=== PATIENT | male | born 1950 | race Caucasian/White ===

== ENCOUNTER 2017-07-07 12:40 | Observation (INO) | payer MEDICAID, MEDICARE ==
[~2017-07-07] VITALS: Ht 167.6 cm; Wt 101.2 kg
[~2017-07-07 12:40] MED LIST: Divalproex Sodium PO; LAM25 PO
[2017-07-07] MEDS ORDERED: KETOROLAC 30MG/ML VIAL IV ONE (13:15)
[2017-07-07 13:38] LABS: BASOPHILS % 1.1 % (0.0-2.0); EOSINOPHILS % 1.7 % (0.0-5.0); HEMATOCRIT. 35.5 % (42.0-52.0); HEMOGLOBIN. 12.6 g/dL (14.0-18.0); LYMPHOCYTES % 26.9 % (20.0-50.0); MEAN CORPUSCULAR HEMOGLOBIN 33.6 pg (28.0-32.0); MEAN CORPUSCULAR VOLUME 94.8 fL (80.0-94.0); MEAN PLATELET VOLUME 9.3 fl (7.4-10.4); NEUTROPHILS % 61.3 % (40.0-76.0); PLATELET 101 x1000/uL (130-400); RED BLOOD CELL COUNT 3.74 mill/uL (4.7-6.1)
[2017-07-07 13:55] LABS: CARBON DIOXIDE 27 mEq/L (21-32); CHLORIDE 106 mEq/L (98-107); ETHANOL BLOOD < 10 mg/dL
[2017-07-07 14:13] LABS: CLARITY URINE CLEAR (CLEAR); COLOR URINE YELLOW (YELLOW); KETONES URINE NEGATIVE (NEGATIVE); LEUKOCYTE ESTERASE URINE NEGATIVE (NEGATIVE); NITRITE URINE NEGATIVE (NEGATIVE); OCCULT BLOOD URINE TRACE (NEGATIVE); PH URINE 6.5 (4.5-8.0); PROTEIN URINE NEGATIVE (NEGATIVE); SPECIFIC GRAVITY URINE 1.018 (1.005-1.030); UROBILINOGEN URINE 0.2 E.U./dL (0.2-1.0)
[2017-07-07 14:41] LABS: *AMPHETAMINES SCREEN URINE NEGATIVE (NEGATIVE); *BARBITURATES SCREEN URINE NEGATIVE (NEGATIVE); *BENZODIAZEPINES SCREEN URINE NEGATIVE (NEGATIVE); *COCAINE SCREEN URINE NEGATIVE (NEGATIVE); CANNABINOID URINE SCREEN NEGATIVE (NEGATIVE); METHADONE URINE SCREEN NEGATIVE (NEGATIVE); OPIATES URINE SCREEN NEGATIVE (NEGATIVE); PHENCYCLIDINE URINE SCREEN NEGATIVE (NEGATIVE)
[2017-07-07] MEDS ORDERED: LORAZEPAM 2MG/ML CPJ IV ONE (20:15)
[2017-07-07 21:10] VITALS: BP 115/78
[2017-07-07 21:30] VITALS: BP 115/78
[2017-07-07] MEDS ORDERED: CITA20TA11 PO (21:55)
[2017-07-07] MEDS ORDERED: LORA10TA7 PO (21:55)
[2017-07-07] MEDS ORDERED: CARB200T6 PO (21:55)
[2017-07-07] MEDS ORDERED: LISI-604 PO (21:55)
[2017-07-07] MEDS ORDERED: ASPI-1159 PO (21:55)
[2017-07-07] MEDS ORDERED: ENOXAPARIN 40MG/0.4ML SYR SUBCUT SCH (22:15)
[2017-07-07] MEDS ORDERED: DEXT 5%/0.45% NACL 1000ML 1,000 ML IV SCH (22:15)
[2017-07-07] MEDS ORDERED: HYDROCODONE/ACETAMINOPHEN 5/325MG TABLET PO PRN (22:15)
[2017-07-07] MEDS ORDERED: LEVETIRACETAM 500MG TABLET PO SCH (22:21)
[2017-07-08] VITALS (7 sets, daily range): BP systolic 92–142; BP diastolic 50–78
[2017-07-08] MEDS ORDERED: DEXTROSE 50% WATER 50ML SYRINGE IV PRN (00:45)
[2017-07-08] MEDS ORDERED: LORAZEPAM 2MG/ML CPJ IV PRN (00:45)
[2017-07-08] MEDS ORDERED: LORAZEPAM 1MG TABLET PO PRN (01:00)
[2017-07-08] MEDS: BLOOD SUGAR DIAGNOSTIC STRIP TEST SCH ×3 (05:46→17:37)
[2017-07-08 07:15] LABS: BASOPHILS % 1.2 % (0.0-2.0); EOSINOPHILS % 3.7 % (0.0-5.0); HEMATOCRIT. 37.8 % (42.0-52.0); HEMOGLOBIN. 12.9 g/dL (14.0-18.0); MEAN CORPUSCULAR HEMOGLOBIN 32.8 pg (28.0-32.0); MEAN CORPUSCULAR VOLUME 96.1 fL (80.0-94.0); MEAN PLATELET VOLUME 9.6 fl (7.4-10.4); MONOCYTES % 9.9 % (2.0-8.0); NEUTROPHILS % 52.2 % (40.0-76.0); PLATELET 92 x1000/uL (130-400); RED BLOOD CELL COUNT 3.93 mill/uL (4.7-6.1); RED CELL DISTRIBUTION WIDTH 13.8 % (11.6-14.6)
[2017-07-08 07:57] LABS: CHLORIDE 106 mEq/L (98-107)
[2017-07-08 08:36] LABS: CARBON DIOXIDE 27 mEq/L (21-32); HDL CHOLESTEROL 63 mg/dL (40-59); LDL CHOLESTEROL 116 mg/dL (5-100); T4 FREE 0.79 ng/dL (0.76-1.46)
[2017-07-08] MEDS: FOLIC ACID 1MG TABLET PO SCH ×2 (08:51)
[2017-07-08] MEDS ORDERED: ASPIRIN 81MG EC TABLET PO SCH ×2 (09:00)
[2017-07-08] MEDS ORDERED: CARBAMAZEPINE 200MG TABLET PO SCH (09:00)
[2017-07-08] MEDS ORDERED: LISINOPRIL 20MG TABLET PO SCH (09:00)
[2017-07-08] MEDS ORDERED: DIVALPROEX SODIUM 500MG DR TABLET PO SCH (09:00)
[2017-07-08] MEDS ORDERED: CITALOPRAM HYDROBROMIDE 20MG TABLET PO SCH (09:00)
[2017-07-08] MEDS ORDERED: LEVETIRACETAM 500MG TABLET PO SCH (09:00)
[2017-07-08] MEDS ORDERED: LORATADINE 10MG TABLET PO SCH (21:00)
== END 2017-07-08 20:10 | disposition home or self-care (01) ==
LOC: ER 13:38 → 5WST 16:41 → INTOOBSV 16:41 → EDBEDREQTM 16:46 → EDBEDREQ 16:46 → ENRESERV 19:44
PROVIDERS: ADMIT Internal Medicine; ATTEND Internal Medicine
DX: G40.89 Other seizures (principal); I10 Essential (primary) hypertension; E78.5 Hyperlipidemia, unspecified; E11.9 Type 2 diabetes mellitus without complications; Z79.899 Other long term (current) drug therapy
CPT/HCPCS: 36415; 80053; 80061; 80156; 80165; 80305; 81001; 82962; 84439; 84443; 85025; 96361; 96372; 96374; 96375; 99285; G0378; G0482; J1650; J1885; J7030; J3490

== ENCOUNTER 2017-09-10 13:54 | Emergency (ER) | payer MEDICARE ==
[~2017-09-10] VITALS: Ht 175.3 cm; Wt 68.0 kg
[~2017-09-10 13:54] MED LIST changes: +ASPI-1159 PO; +CARB200T6 PO; +CITA20TA11 PO; +LISI-604 PO; +LORA10TA7 PO
[2017-09-10 14:47] LABS: EOSINOPHILS % 2.9 % (0.0-5.0); HEMATOCRIT. 35.7 % (42.0-52.0); HEMOGLOBIN. 12.2 g/dL (14.0-18.0); MEAN CORPUSCULAR HEMOGLOBIN 32.2 pg (28.0-32.0); MEAN CORPUSCULAR VOLUME 94.7 fL (80.0-94.0); MONOCYTES % 14.6 % (2.0-8.0); NEUTROPHILS % 58.5 % (40.0-76.0); PLATELET 104 x1000/uL (130-400); RED BLOOD CELL COUNT 3.77 mill/uL (4.7-6.1); RED CELL DISTRIBUTION WIDTH 13.6 % (11.6-14.6)
[2017-09-10 14:51] LABS: CHLORIDE 107 mEq/L (98-107)
[2017-09-10 19:26] VITALS: BP 133/85
== END 2017-09-10 19:27 ==
LOC: ER 13:57
DX: R56.9 Unspecified convulsions (principal); E11.9 Type 2 diabetes mellitus without complications; I10 Essential (primary) hypertension; Z88.8 Allergy status to other drugs, medicaments and biological substances; Z91.011 Allergy to milk products; Z79.82 Long term (current) use of aspirin
CPT/HCPCS: 36415; 80053; 80165; 85025; 99284